=== PATIENT | male | born 1955 | race Caucasian/White ===

== ENCOUNTER 2020-10-16 12:54 | Outpatient (CLI) | payer MEDICARE, OTHER | END 2020-10-16 12:55 | disposition home or self-care (01) | LOC: TBSIIMAG 12:54 | PROVIDERS: ATTEND Orthopaedic Surgery | DX: S43.401S Unspecified sprain of right shoulder joint, sequela (principal); M75.102 Unspecified rotator cuff tear or rupture of left shoulder, not specified as traumatic ==

== ENCOUNTER 2021-12-26 10:18 | Outpatient (CLI) | payer MEDICARE, OTHER | END 2021-12-26 10:19 | disposition home or self-care (01) | LOC: BICULT 10:18 | PROVIDERS: ATTEND Family Medicine | DX: R19.02 Left upper quadrant abdominal swelling, mass and lump (principal); R93.5 Abnormal findings on diagnostic imaging of other abdominal regions, including retroperitoneum | CPT/HCPCS: 76999 ==

== ENCOUNTER 2023-11-17 09:13 | Outpatient (CLI) | payer MEDICARE, OTHER | END 2023-11-17 09:14 | disposition home or self-care (01) | LOC: NM 09:13 | PROVIDERS: ATTEND Urology | DX: C61 Malignant neoplasm of prostate (principal) | CPT/HCPCS: 78306; A9503 ==

== ENCOUNTER 2024-06-09 11:57 | Outpatient (CLI) | payer MEDICARE, OTHER | END 2024-06-09 11:58 | disposition home or self-care (01) | LOC: PET 11:57 | PROVIDERS: ATTEND Radiology Radiation Oncology | DX: C61 Malignant neoplasm of prostate (principal); I25.10 Atherosclerotic heart disease of native coronary artery without angina pectoris; M43.17 Spondylolisthesis, lumbosacral region; E04.9 Nontoxic goiter, unspecified; I51.7 Cardiomegaly; N62 Hypertrophy of breast; E88.2 Lipomatosis, not elsewhere classified; J84.10 Pulmonary fibrosis, unspecified | CPT/HCPCS: 78815; A9552; A9595 ==